=== PATIENT | male | born 1995 | race Caucasian/White ===

== ENCOUNTER 2020-07-08 19:26 | Emergency (ER) | payer MEDICAID ==
[~2020-07-08] VITALS: Ht 180.3 cm; Wt 77.3 kg
[2020-07-08] MEDS ORDERED: GABA-1181 PO (19:54)
[2020-07-08] MEDS ORDERED: ARIP15TA2 PO (19:54)
[2020-07-08 20:54] LABS: APPEARANCE,URINE CLEAR (CLEAR); BILIRUBIN,URINE NEGATIVE (NEGATIVE); GLUCOSE, URINE (UA) NEGATIVE (NEGATIVE); KETONES,URINE NEGATIVE (NEGATIVE); LEUKOCYTE ESTERASE ,URINE NEGATIVE (NEGATIVE); NITRATE,URINE NEGATIVE (NEGATIVE); OCCULT BLOOD,URINE NEGATIVE (NEGATIVE); PH,URINE 5.5 (5.0-8.0); PROTEIN,URINE NEGATIVE (NEGATIVE); UROBILINOGEN,URINE 0.2 mg/dL (<=1.0)
[2020-07-08 21:49] LABS: BASOPHILS % (AUTO) 0.5 % (0.0-2.0); HEMATOCRIT 41.5 % (41-53); HEMOGLOBIN 13.9 g/dL (13.5-17.5); LYMPHOCYTES # (AUTO) 3.7 K/uL (1.0-4.8); LYMPHOCYTES % (AUTO) 31.5 % (22.0-44.0); MEAN CORPUSCULAR HEMOGLOBIN 31.4 pg (26.0-34.0); MEAN CORPUSCULAR HGB CONC 33.4 G/dL (31.0-37.0); MEAN CORPUSCULAR VOLUME 94 fL (80-100); MONOCYTES # (AUTO) 0.7 K/uL (0.1-1.0); MONOCYTES % (AUTO) 5.9 % (2.0-9.0); NEUTROPHILS # (AUTO) 6.8 K/uL (1.8-7.7); NEUTROPHILS % (AUTO) 58.1 % (40.0-70.0); PLATELET COUNT (AUTO) 288 K/uL (150-450); RED BLOOD CELL COUNT(AUTO) 4.43 MIL/uL (4.50-5.90); RED CELL DISTRIBUTION WIDTH 12.7 % (11.5-14.5)
[2020-07-08 22:02] LABS: ANION GAP 4 mmol/L (8-16); CALCIUM, TOTAL 8.6 mg/dL (8.8-10.5); CARBON DIOXIDE 31 mmol/L (22-29); CHLORIDE 110 mmol/L (98-107); CREATININE 1.06 mg/dL (0.60-1.30); GLOMERULAR FILTR. RATE CALC > 60 mL/min (>60); GLUCOSE,RANDOM 92 mg/dL (70-110); POTASSIUM 4.3 mmol/L (3.5-5.1); SODIUM SERUM 145 mmol/L (136-145); UREA NITROGEN, BLOOD 21 mg/dL (7-18)
[2020-07-08 23:35] VITALS: BP 121/63
== END 2020-07-08 23:39 | disposition home or self-care (01) ==
LOC: EMS 19:28
DX: R55 Syncope and collapse (principal); R42 Dizziness and giddiness; F20.9 Schizophrenia, unspecified; F17.210 Nicotine dependence, cigarettes, uncomplicated
CPT/HCPCS: 93005

== ENCOUNTER 2021-06-14 13:31 | Inpatient (IN) | payer MEDICAID ==
[~2021-06-14] VITALS: Ht 180.3 cm; Wt 79.4 kg
[~2021-06-14 13:31] MED LIST: ARIP15TA27 PO; GABA-1181 PO
[2021-06-14] MEDS ORDERED: CEPHALEXIN MONOHYDRATE 500 MG CAPSULE PO ONE (14:45)
[2021-06-14 15:00] LABS: BASOPHILS % (AUTO) 0.3 % (0.0-2.0); EOSINOPHILS % (AUTO) 0.8 % (1.0-6.0); HEMATOCRIT 30.8 % (41-53); HEMOGLOBIN 10.2 g/dL (13.5-17.5); LYMPHOCYTES # (AUTO) 1.3 K/uL (1.0-4.8); LYMPHOCYTES % (AUTO) 6.5 % (22.0-44.0); MEAN CORPUSCULAR HEMOGLOBIN 30.9 pg (26.0-34.0); MEAN CORPUSCULAR HGB CONC 33.2 G/dL (31.0-37.0); MEAN CORPUSCULAR VOLUME 93 fL (80-100); MONOCYTES % (AUTO) 5.2 % (2.0-9.0); NEUTROPHILS # (AUTO) 17.4 K/uL (1.8-7.7); PLATELET COUNT (AUTO) 227 K/uL (150-450); RED BLOOD CELL COUNT(AUTO) 3.31 MIL/uL (4.50-5.90); RED CELL DISTRIBUTION WIDTH 13.9 % (11.5-14.5)
[2021-06-14 15:01] LABS: NEUTROPHILS % (AUTO) 87.2 % (40.0-70.0)
[2021-06-14 15:11] LABS: ANION GAP 7 mmol/L (8-16); CALCIUM, TOTAL 8.6 mg/dL (8.8-10.5); CARBON DIOXIDE 28 mmol/L (22-29); CHLORIDE 105 mmol/L (98-107); CREATININE 0.94 mg/dL (0.60-1.30); GLOMERULAR FILTR. RATE CALC > 60 mL/min (>60); GLUCOSE,RANDOM 138 mg/dL (70-110); POTASSIUM 3.4 mmol/L (3.5-5.1); SODIUM SERUM 140 mmol/L (136-145); UREA NITROGEN, BLOOD 24 mg/dL (7-18)
[2021-06-14 15:15] LABS: ALANINE AMINOTRANSFERASE 161 U/L (12-78); ALBUMIN 3.5 g/dL (3.4-5.0); ALKALINE PHOSPHATASE 84 U/L (46-116); ASPARTATE AMINOTRANSFERASE 131 U/L (15-37); BILIRUBIN,TOTAL 0.7 mg/dL (0.1-1.0); TOTAL PROTEIN, SERUM 6.7 g/dL (6.4-8.2)
[2021-06-14] MEDS ORDERED: DiphenhydrAMINE HCL 25 MG CAPSULE PO ONE (15:15)
[2021-06-14] MEDS ORDERED: LORazepam 2 MG TABLET PO ONE (15:15)
[2021-06-14] MEDS ORDERED: HALOPERIDOL 5 MG TABLET PO ONE (15:15)
[2021-06-14 15:52] LABS: COVID AG,FIA SOURCE NASOPHARYNGEAL
[2021-06-14 20:22] VITALS: BP 120/61
[2021-06-15 04:28] VITALS: BP 107/69
[2021-06-15] MEDS: LORazepam 2 MG TABLET PO PRN ×3 (04:35→16:00)
[2021-06-15 07:45] LABS: CHOL/HDL RATIO 2.2 (4.2-7.3)
[2021-06-15 08:33] VITALS: BP 116/71
[2021-06-15] MEDS: CEPHALEXIN MONOHYDRATE 500 MG CAPSULE PO SCH ×4 (08:34→21:30)
[2021-06-15] MEDS ORDERED: OMEPRAZOLE 20 MG CAPSULE PO PRN (09:45)
[2021-06-15] MEDS ORDERED: ALBUTEROL SULFATE HFA 90 MCG/PUFF 8 GM INHALER IH PRN (09:45)
[2021-06-15] MEDS ORDERED: CloNIDine HCL 0.1 MG TABLET PO PRN (09:45)
[2021-06-15] MEDS ORDERED: BACITRACIN 28 GM OINTMENT TP PRN (09:45)
[2021-06-15] MEDS ORDERED: POTASSIUM CHLORIDE 20 MEQ ER TABLET PO ONE (09:45)
[2021-06-15] MEDS ORDERED: DOCUSATE SODIUM 100 MG CAPSULE PO PRN (09:45)
[2021-06-15] MEDS ORDERED: PETROLATUM,WHITE 28 GM JELLY TP PRN (09:45)
[2021-06-15] MEDS ORDERED: LOPERAMIDE HCL 2 MG CAPSULE PO PRN (09:45)
[2021-06-15] MEDS ORDERED: MAG HYDROX/AL HYDROX/SIMETH ES 30 ML SUSPENSION UDCUP PO PRN (09:45)
[2021-06-15] MEDS ORDERED: BENZOCAINE/MENTHOL LOZENGE PO PRN (09:45)
[2021-06-15] MEDS ORDERED: ACETAMINOPHEN 325 MG TABLET PO PRN (09:45)
[2021-06-15] MEDS ORDERED: ONDANSETRON HCL 4 MG TABLET PO PRN (09:45)
[2021-06-15] MEDS ORDERED: MAGNESIUM HYDROXIDE SUSPENSION 30 ML UDCUP PO PRN (09:45)
[2021-06-15] MEDS ORDERED: IBUPROFEN 600 MG TABLET PO PRN (09:45)
[2021-06-15] MEDS: ARIPiprazole 15 MG TABLET PO SCH (13:50)
[2021-06-15 16:15] VITALS: BP 106/67
[2021-06-16 06:10] VITALS: BP 116/72
[2021-06-16] MEDS: HALOPERIDOL 5 MG TABLET PO PRN (06:13)
[2021-06-16] MEDS: LORazepam 2 MG TABLET PO PRN ×2 (06:13→19:17)
[2021-06-16 07:42] LABS: BASOPHILS % (AUTO) 0.5 % (0.0-2.0); EOSINOPHILS % (AUTO) 4.2 % (1.0-6.0); HEMATOCRIT 30.5 % (41-53); HEMOGLOBIN 10.1 g/dL (13.5-17.5); LYMPHOCYTES # (AUTO) 1.5 K/uL (1.0-4.8); LYMPHOCYTES % (AUTO) 20.2 % (22.0-44.0); MEAN CORPUSCULAR HEMOGLOBIN 31.2 pg (26.0-34.0); MEAN CORPUSCULAR VOLUME 95 fL (80-100); MONOCYTES # (AUTO) 0.5 K/uL (0.1-1.0); MONOCYTES % (AUTO) 7.4 % (2.0-9.0); NEUTROPHILS # (AUTO) 4.9 K/uL (1.8-7.7); NEUTROPHILS % (AUTO) 67.7 % (40.0-70.0); PLATELET COUNT (AUTO) 232 K/uL (150-450); RED BLOOD CELL COUNT(AUTO) 3.22 MIL/uL (4.50-5.90); RED CELL DISTRIBUTION WIDTH 13.5 % (11.5-14.5)
[2021-06-16 08:22] LABS: ALANINE AMINOTRANSFERASE 130 U/L (12-78); ALBUMIN 2.8 g/dL (3.4-5.0); ALKALINE PHOSPHATASE 81 U/L (46-116); ANION GAP 7 mmol/L (8-16); ASPARTATE AMINOTRANSFERASE 55 U/L (15-37); BILIRUBIN,TOTAL 0.3 mg/dL (0.1-1.0); CALCIUM, TOTAL 8.4 mg/dL (8.8-10.5); CARBON DIOXIDE 25 mmol/L (22-29); CHLORIDE 108 mmol/L (98-107); CREATININE 0.73 mg/dL (0.60-1.30); GLOMERULAR FILTR. RATE CALC > 60 mL/min (>60); GLUCOSE,RANDOM 89 mg/dL (70-110); PHOSPHORUS 3.9 mg/dL (2.5-4.9); POTASSIUM 4.2 mmol/L (3.5-5.1); SODIUM SERUM 140 mmol/L (136-145); TOTAL PROTEIN, SERUM 6.4 g/dL (6.4-8.2); UREA NITROGEN, BLOOD 23 mg/dL (7-18)
[2021-06-16 08:27] VITALS: BP 123/66
[2021-06-16] MEDS: ARIPiprazole 15 MG TABLET PO SCH (08:38)
[2021-06-16] MEDS: CEPHALEXIN MONOHYDRATE 500 MG CAPSULE PO SCH ×4 (08:38→20:13)
[2021-06-16 16:04] VITALS: BP 115/64
[2021-06-16] MEDS: ZOLPIDEM TARTRATE 10 MG TABLET PO PRN (20:13)
[2021-06-17 04:57] VITALS: BP 118/66
[2021-06-17] MEDS: LORazepam 2 MG TABLET PO PRN ×2 (06:55→12:30)
[2021-06-17] MEDS: HALOPERIDOL 5 MG TABLET PO PRN ×2 (06:55→12:30)
[2021-06-17 08:22] VITALS: BP 109/60
[2021-06-17] MEDS: ARIPiprazole 15 MG TABLET PO SCH (08:23)
[2021-06-17] MEDS: CEPHALEXIN MONOHYDRATE 500 MG CAPSULE PO SCH ×4 (08:23→20:31)
[2021-06-17] MEDS: DIVALPROEX SODIUM 500 MG DR TABLET PO SCH ×2 (08:23→16:16)
[2021-06-17 16:09] VITALS: BP 107/62
[2021-06-17] MEDS: ZOLPIDEM TARTRATE 10 MG TABLET PO PRN (20:29)
[2021-06-18 06:14] VITALS: BP 107/59
[2021-06-18] MEDS: HALOPERIDOL 5 MG TABLET PO PRN ×3 (07:55→16:53)
[2021-06-18] MEDS: LORazepam 2 MG TABLET PO PRN ×3 (07:55→16:53)
[2021-06-18] MEDS: DIVALPROEX SODIUM 500 MG DR TABLET PO SCH ×2 (08:25→16:01)
[2021-06-18] MEDS: ARIPiprazole 15 MG TABLET PO SCH (08:25)
[2021-06-18] MEDS: CEPHALEXIN MONOHYDRATE 500 MG CAPSULE PO SCH ×4 (08:25→20:14)
[2021-06-18 08:50] VITALS: BP 102/62
[2021-06-18 16:11] VITALS: BP 102/60
[2021-06-19 05:37] VITALS: BP 100/63
[2021-06-19 08:21] VITALS: BP 116/60
[2021-06-19] MEDS: CEPHALEXIN MONOHYDRATE 500 MG CAPSULE PO SCH ×4 (08:37→20:24)
[2021-06-19] MEDS: ARIPiprazole 15 MG TABLET PO SCH (08:37)
[2021-06-19] MEDS: DIVALPROEX SODIUM 500 MG DR TABLET PO SCH ×2 (08:37→16:52)
[2021-06-19] MEDS: HALOPERIDOL 5 MG TABLET PO PRN ×2 (09:47→17:14)
[2021-06-19] MEDS: LORazepam 2 MG TABLET PO PRN ×2 (09:47→17:14)
[2021-06-19 16:12] VITALS: BP 112/62
[2021-06-19] MEDS: ZOLPIDEM TARTRATE 10 MG TABLET PO PRN (20:24)
[2021-06-20 08:13] VITALS: BP 114/69
[2021-06-20] MEDS: DIVALPROEX SODIUM 500 MG DR TABLET PO SCH ×2 (09:53→16:24)
[2021-06-20] MEDS: CEPHALEXIN MONOHYDRATE 500 MG CAPSULE PO SCH ×4 (09:53→20:08)
[2021-06-20] MEDS: ARIPiprazole 15 MG TABLET PO SCH (09:53)
[2021-06-20] MEDS: HALOPERIDOL 5 MG TABLET PO PRN (09:59)
[2021-06-20] MEDS: LORazepam 2 MG TABLET PO PRN (15:55)
[2021-06-20 16:08] VITALS: BP 112/64
[2021-06-20] MEDS: ZOLPIDEM TARTRATE 10 MG TABLET PO PRN (20:11)
[2021-06-21 00:58] VITALS: BP 105/63
[2021-06-21] MEDS: DIVALPROEX SODIUM 500 MG DR TABLET PO SCH (08:48)
[2021-06-21] MEDS: ARIPiprazole 15 MG TABLET PO SCH (08:48)
[2021-06-21] MEDS: CEPHALEXIN MONOHYDRATE 500 MG CAPSULE PO SCH ×2 (08:48→13:03)
[2021-06-21 08:52] VITALS: BP 115/68
[2021-06-21] MEDS: LORazepam 2 MG TABLET PO PRN (08:57)
[2021-06-21] MEDS ORDERED: ARIP15TA27 PO (11:04)
[2021-06-21] MEDS ORDERED: DIVA-112 PO (11:05)
[2021-06-21] MEDS ORDERED: CEPH500C3 PO (11:05)
[2021-06-21 12:48] LABS: GLUCOMETER DEV NAME(LOC) POC.BV
== END 2021-06-21 13:00 | disposition home or self-care (01) | DRG 750 ==
LOC: EMS 13:31 → B3A 17:07 → B2S 06-19 21:51
PROVIDERS: ADMIT Psychiatry & Neurology Psychiatry; ATTEND Psychiatry & Neurology Psychiatry
DX: F25.9 Schizoaffective disorder, unspecified (principal); D64.9 Anemia, unspecified; F32.9 Major depressive disorder, single episode, unspecified; E87.6 Hypokalemia; F41.9 Anxiety disorder, unspecified; G47.00 Insomnia, unspecified; J45.909 Unspecified asthma, uncomplicated; K59.00 Constipation, unspecified; F10.10 Alcohol abuse, uncomplicated; Y90.9 Presence of alcohol in blood, level not specified; F15.10 Other stimulant abuse, uncomplicated; L03.119 Cellulitis of unspecified part of limb; R74.01 Elevation of levels of liver transaminase levels; R79.89 Other specified abnormal findings of blood chemistry; Z20.822 Contact with and (suspected) exposure to COVID-19; F17.210 Nicotine dependence, cigarettes, uncomplicated; Z72.89 Other problems related to lifestyle; Z71.6 Tobacco abuse counseling; Z71.51 Drug abuse counseling and surveillance of drug abuser
CPT/HCPCS: 80053; 80061; 83735; 84100; 85025; 87081; 99285; G0480

== ENCOUNTER 2021-09-23 17:51 | Emergency (ER) | payer MEDICAID ==
[~2021-09-23 17:51] MED LIST changes: +CEPH500C3 PO; +DIVA-112 PO; -GABA-1181 PO
== END 2021-09-23 20:12 | disposition left against medical advice (07) ==
LOC: EMS 17:52
DX: R46.89 Other symptoms and signs involving appearance and behavior (principal); Z53.21 Procedure and treatment not carried out due to patient leaving prior to being seen by health care provider

== ENCOUNTER 2021-10-30 19:05 | Emergency (ER) | payer MEDICAID ==
[~2021-10-30] VITALS: Ht 180.3 cm; Wt 75.0 kg
[2021-10-30 19:10] VITALS: BP 104/64
== END 2021-10-30 21:39 | disposition left against medical advice (07) ==
LOC: EMS 19:15
DX: F29 Unspecified psychosis not due to a substance or known physiological condition (principal); Z53.21 Procedure and treatment not carried out due to patient leaving prior to being seen by health care provider